=== PATIENT | female | born 1995 | race Caucasian/White ===

== ENCOUNTER 2016-12-14 10:54 | Emergency (ER) | payer OTHER ==
[~2016-12-14] VITALS: Ht 160 cm; Wt 79.1 kg
[2016-12-14 12:24] LABS: HEMATOCRIT 41.5 % (36.0-46.0); MCH 32.1 PG (29.0-34.0); MCHC 34.5 G/DL (30.0-36.0); MEAN PLAT.VOLUME 9.5 uM^3 (9.5-12.4); PLATELET COUNT 272 K/uL (156-360); RBC DIS.WIDTH-CV 11.7 % (11.8-14.6); RBC DIS.WIDTH-SD 39.6 % (39-53); RED BLOOD COUNT 4.46 M/uL (3.80-5.20); WHITE BLOOD COUNT 7.6 K/uL (4.1-10.2)
[2016-12-14 12:33] LABS: CHLORIDE 107 mEq/L (99-109); POTASSIUM 4.9 mEq/L (3.7-5.4); SODIUM 140 mEq/L (136-147)
[2016-12-14 12:35] LABS: GLUCOSE 88 mg/dL (70-99)
[2016-12-14 12:36] LABS: ANION GAP 11 MEQ/L (2-14)
[2016-12-14 12:37] LABS: TOTAL BILIRUBIN 0.6 mg/dL (0.0-1.0)
[2016-12-14 12:38] LABS: ALKALINE PHOSPHATASE 63 IU/L (3-129)
[2016-12-14 12:40] LABS: UREA NITROGEN (BUN) 9 mg/dL (9-23)
[2016-12-14 12:51] LABS: QUANTITATIVE HCG < 4.0 MIU/ML
[2016-12-14 12:56] LABS: GFR ESTIMATE (CALCULATED) > 59 mL/min/
[2016-12-14 13:36] LABS: ADD MIUA? YES; BILIRUBIN NEGATIVE; BLOOD SMALL; COLOR YELLOW ((YELLOW)); GLUCOSE (STRIP) NEGATIVE; KETONES 5; LEUKOCYTES NEGATIVE; NITRITE NEGATIVE; PROTEIN (STRIP) NEGATIVE; SPECIFIC GRAVITY 1.014 (1.000-1.030); UROBILINOGEN 0.2 MG/DL (0.2-1.0)
[2016-12-14 13:43] LABS: BACTERIA NONE SEEN /HPF; EPITHELIAL CELLS RARE /HPF; MUCUS NONE SEEN /LPF; RED BLOOD CELLS 0-5 /HPF (0-5); UCUL ADDED? NO; WHITE BLOOD CELLS 0-5 /HPF (0-5)
[2016-12-14 15:58] VITALS: BP 120/75
[2016-12-16 12:31] LABS: CHLAMYDIA TRACHOMATIS POSITIVE; NEISSERIA GONORRHOEAE NEGATIVE
== END 2016-12-14 16:00 | disposition home or self-care (01) ==
LOC: EME 10:54
PROVIDERS: Physician Assistant
DX: N83.201 Unspecified ovarian cyst, right side (principal); J45.909 Unspecified asthma, uncomplicated
CPT/HCPCS: 76856; 80053; 81003; 84702; 85027; 87210; 87480; 87491; 87510; 87591; 87660; 99281; 99284

== ENCOUNTER 2017-01-05 22:01 | Emergency (ER) | payer OTHER ==
[~2017-01-05] VITALS: Ht 160 cm; Wt 77.7 kg
[2017-01-05 23:09] LABS: HEMATOCRIT 39.1 % (36.0-46.0); MCH 32.1 PG (29.0-34.0); MCHC 34.3 G/DL (30.0-36.0); MCV 93.5 FL (83-99); MEAN PLAT.VOLUME 9.6 uM^3 (9.5-12.4); PLATELET COUNT 240 K/uL (156-360); RBC DIS.WIDTH-CV 11.8 % (11.8-14.6); RBC DIS.WIDTH-SD 39.8 % (39-53); RED BLOOD COUNT 4.18 M/uL (3.80-5.20); WHITE BLOOD COUNT 8.9 K/uL (4.1-10.2)
[2017-01-05 23:17] LABS: CHLORIDE 107 mEq/L (99-109); POTASSIUM 3.4 mEq/L (3.7-5.4); SODIUM 141 mEq/L (136-147)
[2017-01-05 23:20] LABS: GLUCOSE 88 mg/dL (70-99)
[2017-01-05 23:21] LABS: ANION GAP 10 MEQ/L (2-14)
[2017-01-05 23:22] LABS: TOTAL BILIRUBIN 0.3 mg/dL (0.0-1.0)
[2017-01-05 23:23] LABS: ALKALINE PHOSPHATASE 66 IU/L (3-129); GFR ESTIMATE (CALCULATED) > 59 mL/min/
[2017-01-05 23:24] LABS: UREA NITROGEN (BUN) 8 mg/dL (9-23)
[2017-01-05 23:32] LABS: QUANTITATIVE HCG < 4.0 MIU/ML
[2017-01-05 23:50] LABS: ADD MIUA? YES; BILIRUBIN NEGATIVE; BLOOD SMALL; COLOR STRAW ((YELLOW)); GLUCOSE (STRIP) NEGATIVE; KETONES NEGATIVE; LEUKOCYTES LARGE; NITRITE NEGATIVE; PROTEIN (STRIP) NEGATIVE; SPECIFIC GRAVITY 1.008 (1.000-1.030); UROBILINOGEN 0.2 MG/DL (0.2-1.0)
[2017-01-05 23:59] LABS: BACTERIA NONE SEEN /HPF; EPITHELIAL CELLS 1+ /HPF; HYALINE CASTS 0-5 /LPF; MUCUS NONE SEEN /LPF; RED BLOOD CELLS 0-5 /HPF (0-5); UCUL ADDED? NO
[2017-01-06] MEDS ORDERED: TORADOL10 MG PO (00:27)
[2017-01-06 01:07] VITALS: BP 118/78
== END 2017-01-06 01:07 | disposition home or self-care (01) ==
LOC: EME 22:01
DX: N83.201 Unspecified ovarian cyst, right side (principal); J45.909 Unspecified asthma, uncomplicated
CPT/HCPCS: 76856; 80053; 81003; 84702; 85027; 99281; 99284; J1885